=== PATIENT | male | born 1970 | race Two or more races ===

== ENCOUNTER 2018-06-24 20:30 | Emergency (ER) | payer SELFPAY ==
[~2018-06-24] VITALS: Ht 177.8 cm; Wt 102.5 kg
[2018-06-24] MEDS ORDERED: cloNIDine HCL 0.1 MG TAB PO ONE (21:15)
[2018-06-24 23:06] VITALS: BP 166/81
== END 2018-06-25 01:16 | disposition home or self-care (01) ==
LOC: ER 20:30
DX: S92.254A Nondisplaced fracture of navicular [scaphoid] of right foot, initial encounter for closed fracture (principal); X50.0XXA Overexertion from strenuous movement or load, initial encounter; Y93.89 Activity, other specified; Y99.8 Other external cause status; Y92.89 Other specified places as the place of occurrence of the external cause
CPT/HCPCS: 29125; 29515; 73610; 73630; 82962